=== PATIENT | male | born 1980 | race Native Hawaiian/Other Pacific Islander ===

== ENCOUNTER 2016-07-25 21:34 | Emergency (ER) | payer OTHER ==
[~2016-07-25] VITALS: Ht 172.7 cm; Wt 81.8 kg
[2016-07-25 21:47] VITALS: BP 113/69; PULSE 62; RESP 18; O2SAT 97
--- NOTE | 2016-07-25 23:07 | ED.REPORT ---
HPI-Back Pain Under 40 Date of Service Jul 25, 2016 ED Provider: Elias Stack MD 36 year old male with chronic low back pain presents to the ER complaining of low back pain onset yesterday around 21:00. Pain is different than typical back pain. He denies recent falls, trauma or heavy lifting, fever, neck pain, numbness/tingling, and incontinence. Patient is a vague, poor historian. Nursing Notes Stated Complaint: BACK PAIN Chief Complaint: Back Pain or Injury Nursing Notes Reviewed: Yes Allergies: Coded Allergies: No Known Allergies (Verified Allergy, Unknown, 07/25/16) Scheduled PRN Cyclobenzaprine (Cyclobenzaprine) 5 Mg Tablet 5 MG PO HS PRN PRN Spasm Ibuprofen (Ibuprofen) 800 Mg Tablet 800 MG PO TID PRN PRN For Pain General Time Seen by MD: 23:06 Chief Complaint Back pain Hx Obtained From: Patient Arrived By: Walk-in Sudden in Onset?: No Onset Occurred: Yesterday Symptom Duration: Since onset Caused by: Spontaneous/no mechanism, Aggravated old injury Location: : Spinal lumbar area Quality: Painful Severity: Current: Moderate Severity: Maximum: Moderate Associated with: Denies: Incontinence bladder, Incontinence bowel, Numbness both low ext, Tingling left lower ext, Tingling right lower ext, Vomiting, Weakness both lower ext Related History: Reports: Chronic back pain Past Medical History Past Medical History Denies Past Surgical History Denies Family History Noncontributory Smoking History Former Smoker Social History Alcohol Use: Denies alcohol use Drug Use: Denies drug use Other Social History: Local resident Ambulatory Status Independent Review of Systems Constitutional: Denies: Chills, Fever GI: Denies: Vomiting Musculoskeletal: Reports: Back pain, Denies: Extremity pain, Joint pain, Neck pain Neurologic: Denies: Bladder dysfunction, Bowel dysfunction, Focal weakness, Headache, Numbness, Syncope Complete sys rev & neg: except as marked. Physical Exam Initial Vital Signs Vital Signs (First) Date Time Temp Pulse Resp B/P Pulse Ox O2 Delivery O2 Flow Rate FiO2 07/25/16 21:47 36.3 62 18 113/69 97 Room Air Initial VS: Reviewed Head / Eyes: Atraumatic, Normocephalic ENT: Mucous membranes moist, Conjunctiva normal, No scleral icterus Neck: Supple, Non-tender, Full range of motion Abdomen / GI: Soft, Non-tender, No guarding, No rebound, No distention Extremities: Vascular intact, Neuro intact, No swelling, No tenderness Skin: Warm, Dry, No cyanosis General/Constitutional: Awake, Alert, Well developed, Well nourished Back: Full range of motion, No midline vertebral tend Diffuse lateral low back tenderness, bilaterally. Neurologic: Oriented X3, Speech NL, No motor deficits, No sensory deficits, Reflexes equal bilat Re-Eval/Medical Decision Med Decision/Clinical Course 36-year-old male presenting complaining of low back pain 1 day. 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 He reports it gets better with heat and rest. No urinary symptoms. No red flag symptoms. Neurological exam is normal. He has diffuse bilateral low back tenderness. No spine tenderness. Patient was given Toradol with improvement. He will be discharged home with ibuprofen and muscle relaxers needed. Recommend follow-up with primary doctor. Return precautions given. Source of Hx: Old records Re-Evaluation/Progress : Time of Eval: 23:19 Re-Evaluation/Progress Note: Discussed physical examination findings and plan to discharge. Patient is amenable to the plan. Return precautions given. All other questions addressed. Counseled Regarding: Diagnosis, Need for follow-up, When/why to return to ED Discharge & Departure Impression: Primary Impression: Lumbosacral strain Disposition: Home All VS Reviewed: Yes Condition: Stable Patient Instructions: Low Back Strain (ED) Additional Instructions: Your workup today was reassuring. I do not believe that there is any dangerous cause for your symptoms at this time. I have prescribed you Ibuprofen and Flexeril, please take these as directed. Flexeril is a muscle relaxer, do not consume alcohol or drive while taking Flexeril. Go home and rest. Activity as tolerated, no heavy lifting. Apply ice three times daily. Call the primary care provider at the number below to arrange a follow-up appointment in 1-2 weeks if your symptoms do not improve. Return to the ER if you develop uncontrollable pain, numbness/tingling, weakness , incontinence, or any other concerning symptoms. Referrals: [facility] Scribe Attestation Portions of this note were transcribed by Monster Pruett. I, Dr. Stack, personally performed the history, physical exam and medical decision-making; I reviewed and confirmed the accuracy of the information in the transcribed note. Signed by: Alexander Varner, 07/25/2016 - 23:53 copies to: [facility] Elias Stack MD Jul 25, 2016 23:07 MONSTER PRUETT Jul 25, 2016 23:28
[2016-07-25] MEDS ORDERED: CYCL5TAB PO (23:37)
[2016-07-25] MEDS ORDERED: IBUP800T28 PO (23:37)
[2016-07-25] MEDS ORDERED: Ketorolac 30 mg/mL 2 mL Inj IM ONE (23:40)
[2016-07-26 00:03] VITALS: BP 113/69; PULSE 62; RESP 18; O2SAT 97
== END 2016-07-26 00:04 | disposition home or self-care (01) ==
LOC: SED 21:34
DX: S39.012A Strain of muscle, fascia and tendon of lower back, initial encounter (principal); X50.0XXA Overexertion from strenuous movement or load, initial encounter; Y93.89 Activity, other specified; Y92.9 Unspecified place or not applicable; Y99.8 Other external cause status; Z87.891 Personal history of nicotine dependence
CPT/HCPCS: 96372; 99283; J1885

== ENCOUNTER 2017-01-01 03:39 | Emergency (ER) | payer OTHER ==
[~2017-01-01] VITALS: Ht 172.7 cm; Wt 77.3 kg
[~2017-01-01 03:39] MED LIST: CYCL5TAB PO; IBUP800T28 PO
[2017-01-01 03:44] VITALS: BP 124/79; PULSE 51; RESP 16; O2SAT 97
--- NOTE | 2017-01-01 03:46 | ED.REPORT ---
HPI-Dental/Mouth Prob Date of Service Jan 01, 2017 ED Provider: Dr. Lawrence Cao MD A 36 year old male with a history of chronic back pain presents to the ED with dental pain that began a few days ago. The patient is currently expressing concern because of increased redness, swelling and pain in his gums has become progressively worse since onset. Patient denies any recent fever or chills. He does not currently have a dentist appointment scheduled. Nursing Notes Stated Complaint: DENTAL PAIN Chief Complaint: Dental Nursing Notes Reviewed: Yes Allergies: Coded Allergies: No Known Allergies (Verified Allergy, Unknown, 07/25/16) Scheduled PRN Cyclobenzaprine (Cyclobenzaprine) 5 Mg Tablet 5 MG PO HS PRN PRN Spasm Ibuprofen (Ibuprofen) 800 Mg Tablet 800 MG PO TID PRN PRN For Pain General Time Seen by MD: 03:46 Chief Complaint Tooth pain Hx Obtained From: Patient Arrived By: Walk-in Onset Occurred: 3 days ago Symptom Duration: Since onset Quality: Painful Radiation: : Does not radiate Severity: Current: Mild Severity: Maximum: Moderate Associated with: Denies: Chills, Fever Pertinent Negative: Pt denies other symptoms Recent Healthcare: No recent doctor visit, No recent hospitalization Past Medical History Past Medical History Chronic back pain Past Surgical History None reported. Family History Noncontributory Smoking History Former Smoker Social History Alcohol Use: Denies alcohol use Drug Use: Denies drug use Other Social History: Local resident Ambulatory Status Independent Review of Systems Constitutional: Denies: Chills, Fever Ears / Nose / Throat: Reports: Toothache Complete sys rev & neg: except as marked. Physical Exam Initial Vital Signs Vital Signs (First) Date Time Temp Pulse Resp B/P Pulse Ox O2 Delivery O2 Flow Rate FiO2 01/01/17 03:44 36.8 51 16 124/79 97 Room Air Initial VS: Reviewed, Vital signs normal Head / Eyes: Atraumatic, Normocephalic, PERRL Extremities: Vascular intact, Neuro intact, No swelling, No tenderness Skin: Warm, Dry, No cyanosis Neurologic: Alert, Oriented, Nonfocal Psychiatric: Mood/affect normal, Behavior normal, Normal thought content ENT: Atraumatic, Airway patent, Mucous membranes moist, Pharynx NL Dental / Gums: Positive: Decay extensive, Decay single tooth (#18 & #19), Dental abscess (Likely abscess #18 & #19), Gum swelling (erythema and swelling) , Gum tenderness Neck: Atraumatic, Supple, Full range of motion, No adenopathy General/Constitutional: Awake, Alert, No acute distress Respiratory / Chest: Atraumatic, Breath sounds NL, Breath sounds = bilat, No respiratory distress Cardiovascular: Heart rate NL, Regular rhythm, Heart sounds NL Re-Eval/Medical Decision Med Decision/Clinical Course Dental decay with likely dental abscess, treated with antibiotics and a dental referral. Re-Evaluation/Progress : Time of Eval: 04:13 Patient Status: Condition improved Re-Evaluation/Progress Note: Patient is re-evaluated. His symptoms have improved upon recheck. All questions are addressed. The patient understands and agrees with the intended treatment plan. Counseled Regarding: Diagnosis, Need for follow-up, When/why to return to ED Discharge & Departure Primary Impression: Dental abscess Disposition: Home Discharge Condition All VS Reviewed: Yes Condition: Improved Patient Instructions: Toothache (ED) Additional Instructions: Penicillin 500 mg by mouth 3 times a day, #30 prepack dispensed. Ibuprofen and/ or Tylenol as needed for pain. Follow up at [facility] as soon as possible. Referrals: [facility] (PCP) Scribe Attestation Portions of this note were transcribed by Steve Bennett. I, Dr. Cao personally performed the history, physical exam and medical decision-making; I reviewed and confirmed the accuracy of the information in the transcribed note. copies to: [facility] Lawrence Cao MD Jan 01, 2017 03:46 STEVE BENNETT Jan 01, 2017 03:49
[2017-01-01 04:26] VITALS: BP 126/76; PULSE 59; RESP 16; O2SAT 98
[2017-01-01] MEDS ORDERED: _Penicillin VK 500 mg Tablet PO SCH (08:30)
== END 2017-01-01 04:27 | disposition home or self-care (01) ==
LOC: SED 03:39
DX: K04.7 Periapical abscess without sinus (principal); Z87.891 Personal history of nicotine dependence